=== PATIENT | male | born 1990 ===

== ENCOUNTER 2020-08-12 13:53 | Emergency (ER) | payer SELFPAY ==
[2020-08-12 14:12] VITALS: BP 132/85
--- NOTE | 2020-08-12 14:28 | Emergency Department Report ---
ED General Adult HPI - General Chief complaint: Extremity Problem,Nontraumatic Stated complaint: LT WRIST PAIN Time Seen by Provider: 08/12/20 14:27 Source: patient Mode of arrival: Ambulatory Limitations: No Limitations - History of Present Illness Initial comments: 29-year-old -[place] male patient without past medical history presents with complaints of left forearm pain, swelling, and redness x4 days. He denies any injury to his arm, fever/chills/sweats, history of cancer, dysuria/hematuria/penile discharge, or numbness/tingling/weakness in his arm. Patient rates his pain as a 7/10 in severity and states it worsens with movement. He does report heavy lifting frequently for work - Related Data Previous Rx's Medication Instructions Recorded Last Taken Type Clindamycin [Clindamycin CAP] 300 mg PO Q6H 10 Days #40 capsule 08/12/20 Unknown Rx Naproxen 500 mg PO BID PRN #14 tablet 08/12/20 Unknown Rx Allergies Allergy/AdvReac Type Severity Reaction Status Date / Time No Known Allergies Allergy Unverified 08/12/20 14:08 ED Review of Systems ROS: Stated complaint: LT WRIST PAIN Other details as noted in HPI Constitutional: denies: chills, diaphoresis, fever, malaise, weakness Respiratory: denies: cough, shortness of breath Endocrine: denies: excessive sweating Gastrointestinal: denies: nausea, vomiting Musculoskeletal: joint swelling, arthralgia Skin: change in color Neurological: denies: numbness, paresthesias, abnormal gait Hematological/Lymphatic: denies: easy bruising ED Past Medical Hx - Past Medical History Previous Medical History?: No - Surgical History Past Surgical History?: No - Social History Smoking Status: Unknown if ever smoked Substance Use Type: None - Medications Home Medications: Home Medications Medication Instructions Recorded Confirmed Last Taken Type Clindamycin [Clindamycin CAP] 300 mg PO Q6H 10 Days #40 capsule 08/12/20 Unknown Rx Naproxen 500 mg PO BID PRN #14 tablet 08/12/20 Unknown Rx ED Physical Exam - General Limitations: No Limitations General appearance: alert, in no apparent distress - Head Head exam: Present: atraumatic, normocephalic - Eye Eye exam: Present: normal appearance - Neck Neck exam: Present: normal inspection - Respiratory Respiratory exam: Absent: respiratory distress - Cardiovascular Cardiovascular Exam: Present: regular rate - Expanded Upper Extremity Exam Left Forearm Wrist exam: Present: full ROM, tenderness, swelling (Mild swelling and warmth noted to the distal forearm with erythema; no bony tenderness noted in the wrist), erythema. Absent: ecchymosis, deformity - Back Exam Back exam: Present: normal inspection - Neurological Exam Neurological exam: Present: alert, oriented X3 - Psychiatric Psychiatric exam: Present: normal affect, normal mood - Skin Skin exam: Present: warm, dry, intact. Absent: rash ED Course Vital Signs 08/12/20 14:12 Temperature 98 F Pulse Rate 88 Respiratory 16 Rate Blood Pressure 132/85 [Right] O2 Sat by Pulse 99 Oximetry ED Medical Decision Making - Radiology Data Radiology results: report reviewed LEFT FOREARM 2 VIEWS INDICATION / CLINICAL INFORMATION: distal pain and erythema, no injury COMPARISON: None available. FINDINGS: BONES / JOINT(S): No acute fracture or subluxation. No significant arthritis. SOFT TISSUES: No significant abnormality. ADDITIONAL FINDINGS: None. - Medical Decision Making 29-year-old -[place] male patient without past medical history presents with complaints of left forearm pain, swelling, and redness x4 days. He denies any injury to his arm, fever/chills/sweats, history of cancer, dysuria/hematuria/penile discharge, or numbness/tingling/weakness in his arm. Patient rates his pain as a 7/10 in severity and states it worsens with movem ent. He does report heavy lifting frequently for work. Erythema and mild swelling noted to the forearm on exam. X-ray is negative for osteomyelitis or acute bony abnormalities. Will treat for cellulitis with clindamycin. Recommend follow-up with primary care provider within 3 days. Patient provided with referral to [facility]. His vitals are normal, he is well-appearing, he is stable for discharge home. Strict return precautions were discussed in detail with patient who verbalizes understanding. Critical care attestation.: If time is entered above; I have spent that time in minutes in the direct care of this critically ill patient, excluding procedure time. ED Disposition Clinical Impression: Cellulitis of forearm, left Disposition: DC-01 TO HOME OR SELFCARE Is pt being admited?: No Condition: Stable Instructions: Cellulitis, Adult Prescriptions: Clindamycin [Clindamycin CAP] 300 mg PO Q6H 10 Days #40 capsule Naproxen 500 mg PO BID PRN #14 tablet PRN Reason: pain Referrals: [facility] [Provider Group] - 2-3 Days
--- NOTE | 2020-08-12 15:57 | XRay Report ---
LEFT FOREARM 2 VIEWS INDICATION / CLINICAL INFORMATION: distal pain and erythema, no injury COMPARISON: None available. FINDINGS: BONES / JOINT(S): No acute fracture or subluxation. No significant arthritis. SOFT TISSUES: No significant abnormality. ADDITIONAL FINDINGS: None. Signer Name: Rainer Mclaughlin MD Signed: 08/12/2020 3:53 PM Workstation Name: [id number]
== END 2020-08-12 14:28 | disposition home or self-care (01) ==
LOC: ED 13:53
DX: L03.114 Cellulitis of left upper limb (principal)
CPT/HCPCS: 99283

== ENCOUNTER 2021-04-17 19:22 | Emergency (ER) | payer SELFPAY ==
[2021-04-17 20:37] VITALS: BP 113/55
--- NOTE | 2021-04-17 21:29 | XRay Report ---
Lumbar spine 3 views INDICATION: Back pain FINDINGS: Alignment appears normal. No acute fracture or subluxation Signer Name: Sridhar Maurer MD Signed: 04/17/2021 9:25 PM Workstation Name: [id number]
[2021-04-17] MEDS ORDERED: dexAMETHasone 20 MG/5 ML VIAL IV ONE (23:05)
[2021-04-17] MEDS ORDERED: KETOROLAC 30 MG/1 ML INJ IV ONE (23:05)
--- NOTE | 2021-04-18 00:01 | Emergency Department Report ---
ED Back Pain/Injury HPI - General Chief Complaint: Back Pain/Injury Stated Complaint: TESTICULAR AND BACK PAIN Source: patient Limitations: No Limitations - History of Present Illness Initial Comments: Patient is a 30-year-old -[place] male with no past medical history presents to the ED with complaint of acute onset persistent severe low back pain that radiates to his buttocks and lower abdomen as well as bilateral thighs and inguinal area for the last 2 days after heavy lifting at work. Patient states that he also experienced a single episode of nausea and vomiting prior to arrival in the ED. patient states that the pain is especially worse with any movement and that the pain got worse in the last 12 hours. Patient denies testicular pain, dysuria, hematuria, dizziness, syncope, diarrhea, traumatic injury, numbness and tingling or weakness of lower extremities bilaterally, chest pain, shortness of breath, fever, chills, headache, neck pain or cough MD Complaint: back pain (lower back pain after heavy lifting), other (lower abdominal pain; testicular pressure) -: Sudden, days(s) (2) Similar Symptoms Previously: No Place: home Radiation: abdomen (lower back pain), groin Severity: severe Severity scale (0 -10): 8 Quality: sharp, aching Consistency: constant Improves With: none Worsens With: movement Context: while lifting, turning/twisting Associated Symptoms: denies other symptoms, abdominal pain (suprapubic). denies: confusion, weakness, chest pain, difficulty walking, cough, difficulty urinating, diaphoresis, fever/chills, constipation, headaches, loss of appetite, malaise, nausea/vomiting, rash, seizure, shortness of breath, syncope - Related Data Previous Rx's Medication Instructions Recorded Last Taken Type Clindamycin [Clindamycin CAP] 300 mg PO Q6H 10 Days #40 capsule 08/12/20 Unknown Rx Naproxen 500 mg PO BID PRN #14 tablet 08/12/20 Unknown Rx Baclofen 20 mg PO Q12H PRN #24 tablet 04/18/21 Unknown Rx Ibuprofen [Motrin] 800 mg PO Q8HR PRN #30 tablet 04/18/21 Unknown Rx predniSONE [Deltasone] 40 mg PO QDAY #10 tab 04/18/21 Unknown Rx Allergies Allergy/AdvReac Type Severity Reaction Status Date / Time No Known Allergies Allergy Unverified 08/12/20 14:08 ED Review of Systems ROS: Stated complaint: TESTICULAR AND BACK PAIN Other details as noted in HPI Constitutional: denies: chills, fever Eyes: denies: eye pain, eye discharge, vision change ENT: denies: ear pain, throat pain Respiratory: denies: cough, shortness of breath, wheezing Cardiovascular: denies: chest pain, palpitations Endocrine: no symptoms reported Gastrointestinal: abdominal pain (suprapubic ). denies: nausea, vomiting, diarrhea Genitourinary: denies: urgency, dysuria, frequency, testicular pain, testicular mass Musculoskeletal: back pain (lower back pain). denies: joint swelling, arthral dom Skin: denies: rash, lesions Neurological: denies: headache, weakness, paresthesias Psychiatric: denies: anxiety, depression Hematological/Lymphatic: denies: easy bleeding, easy bruising ED Past Medical Hx - Past Medical History Previous Medical History?: No - Surgical History Past Surgical History?: No - Social History Smoking Status: Never Smoker Substance Use Type: None - Medications Home Medications: Home Medications Medication Instructions Recorded Confirmed Last Taken Type Clindamycin [Clindamycin CAP] 300 mg PO Q6H 10 Days #40 capsule 08/12/20 Unknown Rx Naproxen 500 mg PO BID PRN #14 tablet 08/12/20 Unknown Rx Baclofen 20 mg PO Q12H PRN #24 tablet 04/18/21 Unknown Rx Ibuprofen [Motrin] 800 mg PO Q8HR PRN #30 tablet 04/18/21 Unknown Rx predniSONE [Deltasone] 40 mg PO QDAY #10 tab 04/18/21 Unknown Rx ED Physical Exam - General Limitations: No Limitations General appearance: alert, in no apparent distress - Head Head exam: Present: atraumatic, normocephalic, normal inspection - Eye Eye exam: Present: normal appearance, PERRL, EOMI Pupils: Present: normal accommodation - ENT ENT exam: Present: normal exam, normal orophraynx, mucous membranes moist, TM's normal bilaterally, normal external ear exam - Neck Neck exam: Present: normal inspection, full ROM - Respiratory Respiratory exam: Present: normal lung sounds bilaterally. Absent: respiratory distress, wheezes, rales, rhonchi, stridor, chest wall tenderness, accessory mu scle use, decreased breath sounds, prolonged expiratory - Cardiovascular Cardiovascular Exam: Present: regular rate, normal rhythm, normal heart sounds. Absent: systolic murmur, diastolic murmur, rubs, gallop - GI/Abdominal GI/Abdominal exam: Present: soft, tenderness (Mild suprapubic tenderness), normal bowel sounds. Absent: guarding, rebound, hyperactive bowel sounds - Extremities Exam Extremities exam: Present: normal inspection, full ROM, normal capillary refill - Back Exam Back exam: Present: normal inspection, full ROM, tenderness (Palpable lumbosacral paraspinal musculoskeletal tenderness), muscle spasm, paraspinal tenderness. Absent: CVA tenderness (R), CVA tenderness (L), vertebral tenderness - Neurological Exam Neurological exam: Present: alert, oriented X3, CN II-XII intact, normal gait, reflexes normal - Psychiatric Psychiatric exam: Present: normal affect, normal mood - Skin Skin exam: Present: warm, dry, intact, normal color. Absent: rash ED Course Vital Signs 04/17/21 04/17/21 20:12 23:57 Temperature 98.4 F Pulse Rate 58 L Respiratory 18 18 Rate Blood Pressure 113/55 O2 Sat by Pulse 100 Oximetry ED Medical Decision Making - Lab Data Result diagrams: 04/17/21 23:23 04/17/21 23:23 - Radiology Data Radiology results: report reviewed, image reviewed [facility] [address] [place] [address] XRay Report Signed Patient: DEBRA LOPES MR #: [id number] : 1990 Acct:[id number] Age/Sex: 30 / M ADM Date: 04/17/21 Loc: ED Attending Dr: Ordering Physician: POLLO ARGUETA MD Date of Service: 04/17/21 Procedure(s): XR spine lumbosacral 2-3V Accession Number(s): [id number] cc: ED MD ELLIE Fluoro Time In Minutes: Lumbar spine 3 views INDICATION: Back pain FINDINGS: Alignment appears normal. No acute fracture or subluxation Signer Name: Sridhar Guadalupe MD Signed: 04/17/2021 9:25 PM Workstation Name: [id number] Transcribed By: CW Dictated By: JENS GUADALUPE MD Electronically Authenticated By: JENS GUADALUPE MD Signed Date/Time: 04/17/212124 DD/ 24 TD/TT: -------- The abdomen pelvis CT scan without contrast showed no acute abnormalities including kidney stones, appendicitis or any other abnormalities of the abdomen and pelvis. - Medical Decision Making This is a 30-year-old -[place] male with no past medical history presents to the ED with complaint of acute onset persistent severe low back pain that radiates to his buttocks and lower abdomen as well as bilateral thighs and inguinal area for the last 2 days after heavy lifting at work. Patient states that he also experienced a single episode of nausea and vomiting prior to arrival in the ED. patient states that the pain is especially worse with any movement and that the pain got worse in the last 12 hours. In the ED, patient is alert and oriented x3 and is not in any distress. Patient was treated for pain in the ED and lab test results were reviewed and are all nonactionable. L- spine x-ray showed no acute fractures or subluxation. Abdomen pelvis CT scan without contrast showed no acute abnormalities including kidney stones. On reevaluation, patient's pain is well controlled medications. Patient was di scharged home on pain medications and muscle relaxants and advised to follow-up with his primary care physician in 5 to 7 days for reevaluation. Patient was advised to return to the ED immediately if symptoms get worse. - Differential Diagnosis Muscle spasm; sciatica; kidney stones; constipation Critical care attestation.: If time is entered above; I have spent that time in minutes in the direct care of this critically ill patient, excluding procedure time. ED Disposition Clinical Impression: Spasm of muscle of lower back Acute low back pain with sciatica Qualifiers: Back pain laterality: bilateral Sciatica laterality: sciatica laterality unspecified Qualified Code(s): M54.40 - Lumbago with sciatica, unspecified side Disposition: TO HOME OR SELFCARE Is pt being admited?: No Does the pt Need Aspirin: No Condition: Stable Instructions: Muscle Cramps and Spasms, [id number], Sciatica, [id number], Acute Back Pain, Adult Additional Instructions: All lab test results were reviewed and are all nonactionable. The L-spine x-ray showed no acute fractures or subluxations. The abdomen pelvis CT scan without contrast showed no acute abnormalities. Therefore take medication with food, drink plenty of fluids and follow-up with your primary care physician in 7 to 10 days for reevaluation. Return to the ED immediately if symptoms get worse. Prescriptions: Baclofen 20 mg PO Q12H PRN #24 tablet PRN Reason: Muscle spasm predniSONE [Deltasone] 40 mg PO QDAY #10 tab Ibuprofen [Motrin] 800 mg PO Q8HR PRN #30 tablet PRN Reason: Pain , Severe (7-10) Referrals: [facility] [Provider Group] - 3-5 Days Time of Disposition: 02:14 Print Language: TOGOLESE
[2021-04-18 00:36] LABS: Basophils % (Auto) 0.4 % (0.0-1.8); Eosinophils # (Auto) 0.1 K/mm3 (0.0-0.4); Eosinophils % (Auto) 1.7 % (0.0-4.3); Hematocrit 41.7 % (35.5-45.6); Hemoglobin 13.9 gm/dl (11.8-15.2); Lymphocytes # (Auto) 2.9 K/mm3 (1.2-5.4); Lymphocytes % (Auto) 41.3 % (13.4-35.0); Mean Corpuscular HGB Conc 33 % (32-34); Mean Corpuscular Volume 96 fl (84-94); Monocytes # (Auto) 0.5 K/mm3 (0.0-0.8); Monocytes % (Auto) 6.6 % (0.0-7.3); Platelet Count 170 K/mm3 (140-440); Red Blood Count 4.37 M/mm3 (3.65-5.03); Red Cell Distribution Width 14.4 % (13.2-15.2)
[2021-04-18 00:56] LABS: Alanine Aminotransferase 13 units/L (7-56); Albumin 4.7 g/dL (3.9-5); BUN/Creatinine Ratio 12; Blood Urea Nitrogen 14 mg/dL (9-20); Calcium 9.6 mg/dL (8.4-10.2); Hemolysis Index 7
--- NOTE | 2021-04-18 01:07 | Cat Scan Report ---
CT ABDOMEN AND PELVIS WITHOUT CONTRAST INDICATION / CLINICAL INFORMATION: Lower back pain radiating to testicles. TECHNIQUE: Axial CT images were obtained through the abdomen and pelvis without IV contrast. All CT scans at [facility] location are performed using CT dose reduction for ALARA by means of automated exposure control. COMPARISON: None available. FINDINGS: LOWER CHEST: No significant abnormality. LIVER: No significant abnormality. GALLBLADDER: No significant abnormality. BILE DUCTS: No significant abnormality. PANCREAS: No significant abnormality. SPLEEN: No significant abnormality. ADRENALS: No significant abnormality. RIGHT KIDNEY / URETER: No significant abnormality. LEFT KIDNEY / URETER: No significant abnormality. STOMACH / SMALL BOWEL: No significant abnormality. COLON: No significant abnormality. APPENDIX: No significant abnormality. PERITONEUM: No free fluid. No free air. No fluid collection. LYMPH NODES: No significant adenopathy. AORTA / ARTERIES: No significant abnormality. IVC / VEINS: No significant abnormality. URINARY BLADDER: No significant abnormality. REPRODUCTIVE ORGANS: No significant abnormality. ADDITIONAL FINDINGS: None. SKELETAL SYSTEM: No significant abnormality. IMPRESSION: 1. No significant abnormality of the abdomen or pelvis. Signer Name: Benito Bustos MD Signed: 04/18/2021 1:03 AM Workstation Name: [id number]
== END 2021-04-18 02:25 | disposition home or self-care (01) ==
LOC: ED 19:22
DX: M54.40 Lumbago with sciatica, unspecified side (principal); M62.830 Muscle spasm of back; R11.2 Nausea with vomiting, unspecified; Z79.899 Other long term (current) drug therapy
CPT/HCPCS: 36415; 72100; 74176; 80053; 83690; 85025; 96374; 96375; 99284; J1100; J1885